=== PATIENT | male | born 1960 | race Caucasian/White ===

== ENCOUNTER 2019-10-04 07:16 | Emergency (ER) | payer OTHER ==
[~2019-10-04] VITALS: Ht 182.9 cm; Wt 115.7 kg
[2019-10-04 07:24] VITALS: BP 156/97
--- NOTE | 2019-10-04 07:31 | NUR ---
PT ASKED FOR REPEAT BP HERE IS TRIAGE, REPEAT RESULT IS 152/97. PT STATES HE DOES NOT WANT TO BE SEEN ANYMORE SINCE BP HAS COME DOWN FROM EARLIER READING AT HOME.
== END 2019-10-04 07:31 | disposition left against medical advice (07) ==
LOC: MED 07:16
DX: I10 Essential (primary) hypertension (principal); Z53.21 Procedure and treatment not carried out due to patient leaving prior to being seen by health care provider

== ENCOUNTER 2019-11-29 09:44 | Emergency (ER) | payer OTHER ==
[~2019-11-29] VITALS: Ht 182.9 cm; Wt 117.0 kg
[2019-11-29 09:46] VITALS: BP 135/90
--- NOTE | 2019-11-29 10:02 | NUR ---
C/O LOWER ABDOMINAL PAIN X LAST NIGHT. DENIES DYSURIA.PT AOX 4 , AFIBRILE ,AMBULATORY WITH STEADY GAIT , DENIES N/V , PAIN AT 3/10 ,PINK PALPEBRAL CONJUNCTIVA , ANICTERIC SCLERA , SCE , FLAT SOFT ABDOMEN, MED HX: DIVERTICOLITIS, ANXIETY
[2019-11-29] MEDS ORDERED: NACL 0.9% 1,000 ML IV SCH (10:23)
[2019-11-29] MEDS ORDERED: KETOROLAC 30 MG/ML VIAL IVP ONE (10:25)
--- NOTE | 2019-11-29 10:30 | NUR ---
PT REFUSE PAIN MEDS AND IVF DR INFORMED AND AWARE.
--- NOTE | 2019-11-29 10:33 | NUR ---
[facility]
[2019-11-29 11:02] LABS: BASOPHILS # (AUTO) 0.1 K/uL (0.00-0.22); BASOPHILS % (AUTO) 1.2 % (0.0-2.0); EOSINOPHILS # (AUTO) 0.2 K/uL (0-0.4); EOSINOPHILS % (AUTO) 2.2 % (0.0-4.0); HEMATOCRIT 47.7 % (36-52); LYMPHOCYTES # (AUTO) 1.8 K/uL (2.0-11.5); LYMPHOCYTES % (AUTO) 17.4 % (20.5-51.1); MEAN CORPUSCULAR HEMOGLOBIN 30 pg (27-31); MEAN CORPUSCULAR HGB CONC 34 g/dL (33-37); MEAN CORPUSCULAR VOLUME 90.4 fL (80-94); MONOCYTES % (AUTO) 9.2 % (1.7-9.3); NEUTROPHILS # (AUTO) 7.4 K/uL (1.8-7.7); PLATELET COUNT (AUTO) 188 K/uL (140-450); RED BLOOD CELL COUNT(AUTO) 5.28 MIL/uL (4.20-6.10); RED CELL DISTRIBUTION WIDTH 13.7 % (11.6-13.7); WHITE BLOOD COUNT (AUTO) 10.6 K/uL (4.8-10.8)
[2019-11-29 11:12] LABS: APPEARANCE,URINE CLEAR (CLEAR); BILIRUBIN,URINE NEGATIVE (NEGATIVE); BLOOD, URINE 2+ (NEGATIVE); COLOR,URINE YELLOW (YELLOW); LEUKOCYTE ESTERASE ,URINE NEGATIVE (NEGATIVE); NITRITE, URINE NEGATIVE (NEGATIVE); UGLUCOSE NEGATIVE (NEGATIVE)
[2019-11-29 11:20] LABS: ALBUMIN 3.8 g/dL (3.4-5.0); ANION GAP 10.1 (8-16); CARBON DIOXIDE 29.1 mmol/L (21-32); CREATININE 0.9 mg/dL (0.6-1.3); POTASSIUM 4.2 mmol/L (3.5-5.1); TOTAL BILIRUBIN 0.5 mg/dL (0.0-1.0)
[2019-11-29 11:28] LABS: WBC,URINE 0-5 /HPF (0-5)
--- NOTE | 2019-11-29 11:41 | NUR ---
DR HAIRSTON AT BEDSIDE EVALUATING PT.
[2019-11-29 11:54] VITALS: BP 135/90
--- NOTE | 2019-11-29 11:54 | NUR ---
Patient discharged with v/s stable. Written and verbal after care instructions given and explained. Patient alert, oriented and verbalized understanding of instructions. Ambulatory with steady gait. All questions addressed prior to discharge. ID band removed. Patient advised to follow up with PMD. Rx of CIPRO AND FLAGYL given. Patient educated on indication of medication including possible reaction and side effects. Opportunity to ask questions provided and answered.
== END 2019-11-29 11:54 | disposition home or self-care (01) ==
LOC: MED 09:44
DX: K57.92 Diverticulitis of intestine, part unspecified, without perforation or abscess without bleeding (principal); R10.32 Left lower quadrant pain; E11.9 Type 2 diabetes mellitus without complications; F17.210 Nicotine dependence, cigarettes, uncomplicated; J45.909 Unspecified asthma, uncomplicated; Z88.1 Allergy status to other antibiotic agents; Z88.2 Allergy status to sulfonamides; Z88.8 Allergy status to other drugs, medicaments and biological substances; Z88.3 Allergy status to other anti-infective agents; Z96.653 Presence of artificial knee joint, bilateral
CPT/HCPCS: 36415; 80053; 81001; 83690; 85025; 99284; J1885

== ENCOUNTER 2020-05-11 14:41 | Emergency (ER) | payer OTHER ==
[~2020-05-11] VITALS: Ht 180.3 cm; Wt 119.3 kg
[2020-05-11 14:53] VITALS: BP 127/102
[2020-05-11 15:34] VITALS: BP 128/99
== END 2020-05-11 15:35 | disposition home or self-care (01) ==
LOC: MED 14:41
DX: I10 Essential (primary) hypertension (principal); F41.9 Anxiety disorder, unspecified; J45.909 Unspecified asthma, uncomplicated; F17.290 Nicotine dependence, other tobacco product, uncomplicated; Z71.6 Tobacco abuse counseling
CPT/HCPCS: 99284

== ENCOUNTER 2020-05-16 10:32 | Emergency (ER) | payer OTHER ==
[~2020-05-16] VITALS: Ht 182.9 cm; Wt 118.8 kg
[2020-05-16 10:38] VITALS: BP 146/82
--- NOTE | 2020-05-16 10:55 | NUR ---
59 YEAR OLD MALE COMPLAINS OF ON/OFF LOWER ABDOMINAL PAIN SINCE YESTERDAY. PT DENIES NAUSEA, VOMITTING, OR DIARRHEA. PT DENIES BLOOD IN URINE OR STOOL. PT DENIES URINARY PROBLEMS. PT STATES SIMILAR TO PREVIOUS DIVERTICULITIS EPISODE. PT AOX4, BREATHING EVEN AND UNLABORED, SKIN WARM AND DRY. BED IN LOWEST POSITION, LOCKED, BED RAIL UPX1. PMH - HTN, DIVERTICULITIS ALLERGIES - BACTRIM
[2020-05-16 11:06] LABS: BASOPHILS # (AUTO) 0.1 K/uL (0.00-0.22); BASOPHILS % (AUTO) 0.9 % (0.0-2.0); EOSINOPHILS # (AUTO) 0.3 K/uL (0-0.4); EOSINOPHILS % (AUTO) 2.8 % (0.0-4.0); HEMATOCRIT 49.2 % (36-52); HEMOGLOBIN 16.6 g/dL (12.0-18.0); LYMPHOCYTES # (AUTO) 2.5 K/uL (2.0-11.5); LYMPHOCYTES % (AUTO) 23.6 % (20.5-51.1); MEAN CORPUSCULAR HEMOGLOBIN 31 pg (27-31); MEAN CORPUSCULAR HGB CONC 34 g/dL (33-37); MEAN CORPUSCULAR VOLUME 90.4 fL (80-94); MONOCYTES # (AUTO) 1.1 K/uL (0.8-1.0); MONOCYTES % (AUTO) 10.3 % (1.7-9.3); NEUTROPHILS # (AUTO) 6.7 K/uL (1.8-7.7); NEUTROPHILS % (AUTO) 62.4 % (42.2-75.2); PLATELET COUNT (AUTO) 216 K/uL (140-450); RED BLOOD CELL COUNT(AUTO) 5.44 MIL/uL (4.20-6.10); RED CELL DISTRIBUTION WIDTH 13.4 % (11.6-13.7); WHITE BLOOD COUNT (AUTO) 10.7 K/uL (4.8-10.8)
[2020-05-16 11:11] LABS: APPEARANCE,URINE CLEAR (CLEAR); BILIRUBIN,URINE NEGATIVE (NEGATIVE); BLOOD, URINE 1+ (NEGATIVE); COLOR,URINE YELLOW (YELLOW); LEUKOCYTE ESTERASE ,URINE NEGATIVE (NEGATIVE); NITRITE, URINE NEGATIVE (NEGATIVE); UGLUCOSE NEGATIVE (NEGATIVE)
[2020-05-16 11:19] LABS: RBC,URINE 0-5 /HPF (0-5); WBC,URINE 0-5 /HPF (0-5)
[2020-05-16 11:20] LABS: ALBUMIN 4.2 g/dL (3.4-5.0); ANION GAP 13.3 (8-16); CARBON DIOXIDE 29.1 mmol/L (21-32); CREATININE 0.8 mg/dL (0.6-1.3); POTASSIUM 4.4 mmol/L (3.5-5.1); TOTAL BILIRUBIN 0.5 mg/dL (0.0-1.0)
[2020-05-16] MEDS ORDERED: AMOX-1000 PO ×2 (11:45→11:48)
--- NOTE | 2020-05-16 11:50 | NUR ---
Patient discharged with v/s stable. Written and verbal after care instructions about diverticulitis given and explained. Patient alert, oriented and verbalized understanding of instructions. Ambulatory with steady gait. All questions addressed prior to discharge. ID band removed. Patient advised to follow up with PMD. Rx of augmentin given. Patient educated on indication of medication including possible reaction and side effects. Opportunity to ask questions provided and answered.
[2020-05-16 11:54] VITALS: BP 146/82
== END 2020-05-16 11:50 | disposition home or self-care (01) ==
LOC: MED 10:32
DX: K57.92 Diverticulitis of intestine, part unspecified, without perforation or abscess without bleeding (principal); R14.0 Abdominal distension (gaseous); J45.909 Unspecified asthma, uncomplicated; E11.9 Type 2 diabetes mellitus without complications; I10 Essential (primary) hypertension; Z88.1 Allergy status to other antibiotic agents; Z88.2 Allergy status to sulfonamides; Z88.8 Allergy status to other drugs, medicaments and biological substances; Z79.899 Other long term (current) drug therapy
CPT/HCPCS: 36415; 80053; 81001; 83690; 85025; 99283

== ENCOUNTER 2020-06-26 14:50 | Emergency (ER) | payer OTHER ==
[~2020-06-26] VITALS: Ht 182.9 cm; Wt 119.3 kg
[~2020-06-26 14:50] MED LIST: AMOX-1000 PO
[2020-06-26 14:57] VITALS: BP 150/110
--- NOTE | 2020-06-26 15:17 | NUR ---
Note undone in EDM - 06/26/20 at 1530 by [email or web address] 59 Y/O MALE C/O LOWER ABDOMINAL PAIN X 3 DAYS. PT SEEN HERE 05/16/20 FOR DIVERTICULITIS AND STATES THAT HE HAS FINISHED X3 ROUNDS OF ANTIBIOTICS AND IS STILL C/O SAME PAIN. THIS IS THE 3RD TIME IN 4 MONTHS. PT STATES THAT HE IS CONSTIPATED AND HAS BEEN TAKING MIRALAX X3 DAYS AND ADMINISTED 3 OTC SUPPOSITORIES WITH NO RELIEF. PT STATES LBM TODAY BUT IT WAS ONLY [place]. ABD IS ROUND, SOFT, AND TENDER ON PALPATION, ACTIVE BOWEL SOUNDS X4 QUADS. PT DENIES PAIN AT THIS TIME, ONLY DURING PALPALTION. PT DENIES N/V. PT AOX4, BREATHING EVEN AND UNLABORED, SKIN WARM AND DRY. BED IN LOWEST POSITION, LOCKED, BED RAIL UPX1. PT IN GOWN PMH: ASTHMA,ANXIETY, HTN NKA
--- NOTE | 2020-06-26 15:17 | NUR ---
59 Y/O MALE C/O LOWER ABDOMINAL PAIN X 3 DAYS. PT SEEN HERE 05/16/20 FOR DIVERTICULITIS AND STATES THAT HE HAS FINISHED X3 ROUNDS OF ANTIBIOTICS AND IS STILL C/O SAME PAIN. THIS IS THE 3RD TIME IN 4 MONTHS. PT STATES THAT HE IS CONSTIPATED AND HAS BEEN TAKING MIRALAX X3 DAYS AND ADMINISTED 3 OTC SUPPOSITORIES WITH NO RELIEF. PT STATES LBM TODAY BUT IT WAS ONLY [place]ALDO. ABD IS ROUND, SOFT, AND TENDER IN LLQ ON PALPATION, ACTIVE BOWEL SOUNDS X4 QUADS. PT DENIES PAIN AT THIS TIME, ONLY DURING PALPALTION. PT DENIES N/V. PT AOX4, BREATHING EVEN AND UNLABORED, SKIN WARM AND DRY. BED IN LOWEST POSITION, LOCKED, BED RAIL UPX1. PT IN GOWN PMH: ASTHMA,ANXIETY, HTN NKA
--- NOTE | 2020-06-26 15:27 | NUR ---
DR JIN AT BEDSIDE
--- NOTE | 2020-06-26 15:45 | NUR ---
URINE AND BLOOD SAMPLES COLLECTED AND GIVEN TO CHAIN MENDER
[2020-06-26 15:46] LABS: BASOPHILS # (AUTO) 0.1 K/uL (0.00-0.22); BASOPHILS % (AUTO) 1.3 % (0.0-2.0); EOSINOPHILS # (AUTO) 0.1 K/uL (0-0.4); EOSINOPHILS % (AUTO) 1.3 % (0.0-4.0); HEMATOCRIT 46.4 % (36-52); HEMOGLOBIN 15.8 g/dL (12.0-18.0); LYMPHOCYTES # (AUTO) 1.8 K/uL (2.0-11.5); LYMPHOCYTES % (AUTO) 15.6 % (20.5-51.1); MEAN CORPUSCULAR HEMOGLOBIN 31 pg (27-31); MEAN CORPUSCULAR HGB CONC 34 g/dL (33-37); MEAN CORPUSCULAR VOLUME 89.9 fL (80-94); MONOCYTES # (AUTO) 1.1 K/uL (0.8-1.0); MONOCYTES % (AUTO) 9.5 % (1.7-9.3); NEUTROPHILS # (AUTO) 8.3 K/uL (1.8-7.7); NEUTROPHILS % (AUTO) 72.3 % (42.2-75.2); PLATELET COUNT (AUTO) 203 K/uL (140-450); RED BLOOD CELL COUNT(AUTO) 5.16 MIL/uL (4.20-6.10); RED CELL DISTRIBUTION WIDTH 13.1 % (11.6-13.7); WHITE BLOOD COUNT (AUTO) 11.4 K/uL (4.8-10.8)
[2020-06-26 15:47] LABS: APPEARANCE,URINE CLEAR (CLEAR); BILIRUBIN,URINE NEGATIVE (NEGATIVE); BLOOD, URINE TRACE-I (NEGATIVE); COLOR,URINE YELLOW (YELLOW); LEUKOCYTE ESTERASE ,URINE NEGATIVE (NEGATIVE); NITRITE, URINE NEGATIVE (NEGATIVE); UGLUCOSE 3+ (NEGATIVE)
[2020-06-26 15:59] LABS: ALBUMIN 3.9 g/dL (3.4-5.0); ANION GAP 11.5 (8-16); CARBON DIOXIDE 27.6 mmol/L (21-32); CREATININE 0.8 mg/dL (0.6-1.3); POTASSIUM 4.1 mmol/L (3.5-5.1); TOTAL BILIRUBIN 0.4 mg/dL (0.0-1.0)
[2020-06-26 16:00] LABS: WBC,URINE NONE SEEN /HPF (0-5)
--- NOTE | 2020-06-26 16:12 | NUR ---
PATIENT RETURNED FROM CT SCAN VIA WHEELCHAIR BACK TO BED 7.
[2020-06-26] MEDS ORDERED: CIPR500T4 PO (17:05)
[2020-06-26] MEDS ORDERED: METR500T1 PO (17:05)
[2020-06-26 17:17] VITALS: BP 148/99
--- NOTE | 2020-06-26 17:17 | NUR ---
Patient discharged with v/s stable. Written and verbal after care instructions given and explained. Patient alert, oriented and verbalized understanding of instructions. Ambulatory with steady gait. All questions addressed prior to discharge. ID band removed. Patient advised to follow up with PMD. Rx of CIPROFLOXACIN AND FLAGYL given. Patient educated on indication of medication including possible reaction and side effects. Opportunity to ask questions provided and answered.
== END 2020-06-26 17:17 | disposition home or self-care (01) ==
LOC: MED 14:50
DX: K57.00 Diverticulitis of small intestine with perforation and abscess without bleeding (principal); K59.00 Constipation, unspecified; J45.909 Unspecified asthma, uncomplicated; E11.9 Type 2 diabetes mellitus without complications; I10 Essential (primary) hypertension; F41.9 Anxiety disorder, unspecified; Z88.2 Allergy status to sulfonamides; Z88.8 Allergy status to other drugs, medicaments and biological substances
CPT/HCPCS: 36415; 74177; 80053; 81001; 83690; 85025; 99285; Q9967

== ENCOUNTER 2021-01-25 10:06 | Emergency (ER) | payer OTHER ==
[~2021-01-25] VITALS: Ht 182.9 cm; Wt 161.0 kg
[~2021-01-25 10:06] MED LIST changes: +CIPR500T4 PO; +METR500T1 PO
[2021-01-25 10:09] VITALS: BP 158/91
--- NOTE | 2021-01-25 10:22 | NUR ---
60 Y/O MALE WITH C/O RIGHT NECK MASS X 5 MONTHS. S/P NECK BIOPSY ON 12/20/20. NON-PRODUCTIVE COUGH NOTED, LUNG SOUNDS ARE CLEAR BILAT. NO MASS NOTED UPON PALPATION ON NECK. DENIES PAIN AT THIS TIME. DENIES N/V/D/CP AT THIS TIME. PT STATES THAT WHEN HE COUGHS "FEELS LIKE SOMETHING CANNOT COME OUT." PMHX: HTN, ANXIETY, LEFT KNEE SURGERY. HOME MEDS: PAXIL, [place] ALLERGIES: DENIES
--- NOTE | 2021-01-25 10:27 | NUR ---
NISSA MELTON AT BEDSIDE TO EXAMINE PT
--- NOTE | 2021-01-25 11:00 | NUR ---
CONTRAST ADMINISTRATION QUESTIONAIRE AND CONSENT SIGNED AND WITNESSED. IV INSERTED FOR CT
--- NOTE | 2021-01-25 11:25 | NUR ---
PT TAKEN FOR CT EXAM BY ALPHONSE
--- NOTE | 2021-01-25 11:35 | NUR ---
PT RETURNED FROM CT EXAM.
[2021-01-25 11:48] VITALS: BP 137/74
--- NOTE | 2021-01-25 11:49 | NUR ---
Patient appears to be resting comfortably in bed. Vital Signs within normal limits. Respirations even and unlabored.
--- NOTE | 2021-01-25 13:06 | NUR ---
Patient discharged with v/s stable. Written and verbal after care instructions given and explained. Patient verbalized understanding. Ambulatory with steady gait. All questions addressed prior to discharge. Advised to follow up with PMD.
== END 2021-01-25 13:06 | disposition home or self-care (01) ==
LOC: MED 10:06
DX: J98.59 Other diseases of mediastinum, not elsewhere classified (principal); R22.1 Localized swelling, mass and lump, neck; J45.909 Unspecified asthma, uncomplicated; I10 Essential (primary) hypertension; F41.9 Anxiety disorder, unspecified; F17.210 Nicotine dependence, cigarettes, uncomplicated; Z98.890 Other specified postprocedural states; Z79.899 Other long term (current) drug therapy; Z88.1 Allergy status to other antibiotic agents; Z88.2 Allergy status to sulfonamides; Z88.8 Allergy status to other drugs, medicaments and biological substances
CPT/HCPCS: 71260; 99285; Q9967

== ENCOUNTER 2022-11-23 14:10 | Emergency (ER) | payer OTHER ==
[~2022-11-23] VITALS: Ht 182.9 cm; Wt 113.4 kg
[2022-11-23 14:36] VITALS: BP 158/100; PULSE 97; RESP 16; TEMP 97.8; O2SAT 97
[2022-11-23 15:41] LABS: BASOPHILS # (AUTO) 0.1 K/uL (0.00-0.22); BASOPHILS % (AUTO) 1.1 % (0.0-2.0); EOSINOPHILS # (AUTO) 0.2 K/uL (0-0.4); EOSINOPHILS % (AUTO) 2.7 % (0.0-4.0); HEMATOCRIT 47.1 % (36-52); HEMOGLOBIN 15.7 g/dL (12.0-18.0); LYMPHOCYTES # (AUTO) 2.1 K/uL (2.0-11.5); LYMPHOCYTES % (AUTO) 25.8 % (20.5-51.1); MEAN CORPUSCULAR HEMOGLOBIN 30 pg (27-31); MEAN CORPUSCULAR HGB CONC 33 g/dL (33-37); MEAN CORPUSCULAR VOLUME 89.8 fL (80-94); MONOCYTES # (AUTO) 0.7 K/uL (0.8-1.0); MONOCYTES % (AUTO) 8.8 % (1.7-9.3); NEUTROPHILS # (AUTO) 4.9 K/uL (1.8-7.7); NEUTROPHILS % (AUTO) 61.6 % (42.2-75.2); PLATELET COUNT (AUTO) 232 K/uL (140-450); RED BLOOD CELL COUNT(AUTO) 5.24 MIL/uL (4.20-6.10); RED CELL DISTRIBUTION WIDTH 13.6 % (11.6-13.7)
[2022-11-23 16:09] LABS: ALANINE AMINOTRANSFERASE 58 U/L (12-78); ALKALINE PHOSPHATASE 76 U/L (50-136); ANION GAP 12.2 (8-16); ASPARTATE AMINOTRANSFERASE 22 U/L (15-37); CALCIUM 9.8 mg/dL (8.5-10.1); CARBON DIOXIDE 30.8 mmol/L (21-32); CHLORIDE 102 mmol/L (98-107); CREATININE 0.8 mg/dL (0.6-1.3); GFR ARICAN-AMERICAN 127 mL/min (>90); GFR NON ARICAN-AMERICAN 105 mL/min (>90); GLUCOSE 183 mg/dL (74-106); LIPASE 153 U/L (73-393); SODIUM SERUM 141 mmol/L (136-145); TOTAL BILIRUBIN 0.3 mg/dL (0.0-1.0); TOTAL PROTEIN, SERUM 7.7 g/dL (6.4-8.2); UREA NITROGEN, BLOOD 10 mg/dL (7-18)
[2022-11-23 17:15] VITALS: O2SAT 97
[2022-11-23 17:55] VITALS: BP 135/96; PULSE 82; RESP 16; TEMP 98; O2SAT 97
[2022-11-23] MEDS ORDERED: OMEP20EC11 PO (18:41)
== END 2022-11-23 19:00 | disposition home or self-care (01) ==
LOC: MED 14:10
DX: R07.9 Chest pain, unspecified (principal); R06.02 Shortness of breath; J45.909 Unspecified asthma, uncomplicated; E11.9 Type 2 diabetes mellitus without complications; I10 Essential (primary) hypertension; E78.5 Hyperlipidemia, unspecified; Z79.899 Other long term (current) drug therapy; Z79.2 Long term (current) use of antibiotics; Z88.8 Allergy status to other drugs, medicaments and biological substances; Z88.2 Allergy status to sulfonamides; Z88.1 Allergy status to other antibiotic agents
CPT/HCPCS: 36415; 71275; 74174; 80053; 83690; 84484; 85025; 93005; 99285; Q9967